=== PATIENT | female | born 1995 | race Caucasian/White ===

== ENCOUNTER 2022-02-06 17:39 | Emergency (ER) | payer MEDICAID ==
[~2022-02-06] VITALS: Ht 182.9 cm; Wt 77.1 kg
[2022-02-06] MEDS ORDERED: EMTR1TAB6 PO (18:05)
[2022-02-06] MEDS ORDERED: OMEP20CA15 PO (18:05)
[2022-02-06] MEDS ORDERED: MELO-107 PO (18:05)
--- NOTE | 2022-02-06 18:20 | NUR ---
Family x1 is at bedside, NAD.
--- NOTE | 2022-02-06 18:22 | NUR ---
X-rays were done at bedside, pending evaluation by Dr Montiel at this time.
--- NOTE | 2022-02-06 18:40 | NUR ---
Dr [email or web address], medical screening exam in progress
--- NOTE | 2022-02-06 18:51 | NUR ---
A copy of Tetanus (Tdap) Vaccine information Statement was handed to patient to read and understand.
[2022-02-06] MEDS ORDERED: HYDR-3980 PO (18:59)
[2022-02-06] MEDS ORDERED: TDAP DIPH,PERTUSS,TET VAC/PF 0.5 ML DISP.SYRIN IM ONE ×2 (19:00→19:08)
[2022-02-06] MEDS ORDERED: HYDROCODONE/APAP 10-325 MG TABLET PO ONE (19:00)
[2022-02-06] MEDS: BACITRACIN ZINC OINT 15 GM TUBE TOP ONE ×2 (19:01→19:17)
--- NOTE | 2022-02-06 19:01 | NUR ---
Patient refused tetanus vaccine, notified.
--- NOTE | 2022-02-06 19:05 | NUR ---
Patient changed his mind and consented to tetanus vaccine administration.
[2022-02-06] MEDS ORDERED: BACITRACIN ZINC OINT 15 GM TUBE ONE (19:06)
[2022-02-06] MEDS ORDERED: HYDROCODONE/APAP 10-325 MG TABLET ONE (19:06)
--- NOTE | 2022-02-06 19:18 | NUR ---
Patient discharged to home in stable condition with steady gait. Written and verbal after care instructions given to patient and family. Patient and family verbalized understanding and compliance of instructions. Stressed follow up with primary doctor or return to ER for worsening s/s.
== END 2022-02-06 19:19 | disposition home or self-care (01) ==
LOC: ER 17:41
DX: S80.212A Abrasion, left knee, initial encounter (principal); S80.812A Abrasion, left lower leg, initial encounter; T14.8XXA Other injury of unspecified body region, initial encounter; V49.69XA Unspecified car occupant injured in collision with other motor vehicles in traffic accident, initial encounter; Y92.410 Unspecified street and highway as the place of occurrence of the external cause; M25.562 Pain in left knee
CPT/HCPCS: 72110; 73130; 73590; 90715; A4663